=== PATIENT | male | born 1985 | race Caucasian/White ===

== ENCOUNTER 2016-07-18 17:48 | Emergency (ER) | payer SELFPAY ==
[~2016-07-18] VITALS: Ht 175.3 cm; Wt 60.0 kg
[2016-07-18 17:53] VITALS: BP 106/72; PULSE 71; RESP 16; TEMP 98.3; O2SAT 100
[2016-07-18] MEDS ORDERED: NAPR500 PO (18:10)
--- NOTE | 2016-07-18 18:10 | PD ---
HPI Chief Complaint: Numbness/Tingling Time Seen by Provider: 17:57 Travel History International Travel<30 days: No Contact w/Intl Traveler<30days: No Traveled to known affect area: No History of Present Illness HPI 30-year-old male here for evaluation of bilateral hand numbness/tingling. The patient reports that for the past 2 weeks he has been having a numbness/tingling /pins and needle sensation in his bilateral hands in his first 2 fingers and sometimes his third fingers. He states that this happens more frequently at night waking him up from sleep 5-6 times per night. 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 Denies trauma. No neck pain or stiffness. No fevers or recent illness. PFSH Social History Tobacco Use: Yes Allergies-Medications (Allergen,Severity, Reaction): Coded Allergies: No Known Allergies (Unverified , 07/18/16) Reported Meds & Prescriptions Reported Meds & Active Scripts Active Tramadol (Tramadol HCl) 50 Mg Tab 50 Mg PO Q6H PRN Naprosyn (Naproxen) 500 Mg Tab 500 Mg PO BID 14 Days Review of Systems Except as stated in HPI: all other systems reviewed are Neg Physical Exam Narrative GENERAL: Well-developed, well-nourished, comfortable, no acute distress. SKIN: Focused skin assessment warm/dry. No rash. HEAD: Atraumatic. Normocephalic. NECK: Trachea midline. No JVD. No midline cervical spine step-off or tenderness. CARDIOVASCULAR: Regular rate and rhythm. Bilateral distal radial pulses are brisk and equal. Normal capillary refill in bilateral hands. RESPIRATORY: No accessory muscle use. Clear to auscultation. Breath sounds equal bilaterally. MUSCULOSKELETAL: No obvious deformities. No clubbing. No cyanosis. No edema. Normal range of motion in bilateral hands in both flexion and extension. NEUROLOGICAL: Awake and alert. No obvious cranial nerve deficits. Motor grossly within normal limits. Normal speech. Positive Tinel's sign and Phalen' s sign in bilateral wrists. 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 PSYCHIATRIC: Appropriate mood and affect; insight and judgment normal. Data Data Last Documented VS Vital Signs Date Time Temp Pulse Resp B/P Pulse Ox O2 Delivery O2 Flow Rate FiO2 07/18/16 17:53 98.3 71 16 106/72 100 Orders Dexamethasone Inj (Decadron Inj) (07/18/16 18:15) Ketorolac Inj (Toradol Inj) (07/18/16 18:15) [facility] Medical Decision Making Medical Screen Exam Complete: Yes Emergency Medical Condition: Yes Differential Diagnosis Carpal tunnel syndrome, cervical cord compression unlikely Narrative Course This is a 30-year-old male with classic signs and symptoms for carpal tunnel syndrome. He has normal pilot plant operator helper strength in bilateral hands and normal muscle strength and range of motion in bilateral upper extremities. Bilateral upper extremities are neurovascularly intact. At this point my plan is to start him on anti-inflammatories. Advised cockup wrist splints at night. I will give him the name of the hand surgeon cotton stomper with whom to follow-up with. He was informed on when to return to the emergency department. He verbalizes understanding and agreement with plan. Diagnosis Primary Impression: Carpal tunnel syndrome of right wrist Referrals: Shea John MD 3 days Hand surgeon Primary Care Physician 3 days Additional Instructions: Follow-up with a primary care physician this week. Follow-up with hand surgeon Dr. John or a hand surgeon of your choice this week. Return to the emergency department for worsening symptoms or any other concerns. Scripts Tramadol 50 Mg Tab50 Mg PO Q6H PRN (PAIN) #15 TAB Ref 0 Prov:Filemon Kelly MD 07/18/16 Naproxen (Naprosyn)500 Mg [id number] Mg PO BID 14 Days Ref 0 Prov:Filemon Kelly MD 07/18/16 Disposition: 01 DISCHARGE HOME Condition: Stable Filemon Kelly MD Jul 18, 2016 18:10
[2016-07-18] MEDS ORDERED: TRAM50TA PO (18:11)
[2016-07-18] MEDS ORDERED: DEXAMETHASONE SOD PHOS 20 MG/5 ML VIAL IM ONE (18:15)
[2016-07-18] MEDS ORDERED: KETOROLAC TROMETHAMINE 60 MG/2 ML (IM) VIAL IM ONE (18:15)
== END 2016-07-18 18:28 | disposition home or self-care (01) ==
LOC: PHED 17:48
DX: G56.01 Carpal tunnel syndrome, right upper limb (principal); Z72.0 Tobacco use
CPT/HCPCS: 96372; 99283; J1100; J1885